=== PATIENT | female | born 1990 | race African-American/Black ===

== ENCOUNTER 2016-07-01 10:32 | Observation (INO) | payer MEDICAID ==
[~2016-07-01] VITALS: Ht 167.6 cm; Wt 92.5 kg
[2016-07-01] MEDS ORDERED: ONDANSETRON HCL 4MG/2ML VIAL IV ONE (11:00)
[2016-07-01] MEDS ORDERED: LACTATED RINGERS 1,000 ML IV SCH (11:00)
[2016-07-01 11:32] LABS: CHLORIDE 106 mEq/L (98-107); INDEX HEMOLYSI 1 (1-3); INDEX ICTERIC 1 (1-4); INDEX LIPEMIC 1 (1-3)
[2016-07-01 11:41] LABS: ALANINE AMINOTRANSFERASE 19 IU/L (13-61); ALBUMIN 3.1 g/dL (3.4-5.0); ANION GAP 15; CALCIUM 8.9 mg/dL (8.5-10.1); CARBON DIOXIDE 23 mEq/L (21-32); UREA NITROGEN BLOOD 6 mg/dL (7-21); eGFR > 60 mL/min (>60)
[2016-07-01 12:24] LABS: CLARITY URINE CLEAR (CLEAR); COLOR URINE DARK YELLOW (YELLOW); GLUCOSE URINE NEGATIVE (NEGATIVE); KETONES URINE 4+ (NEGATIVE); LEUKOCYTE ESTERASE URINE 1+ (NEGATIVE); NITRITE URINE NEGATIVE (NEGATIVE); OCCULT BLOOD URINE NEGATIVE (NEGATIVE); PROTEIN URINE 1+ (NEGATIVE); SPECIFIC GRAVITY URINE 1.021 (1.005-1.030)
[2016-07-01 12:50] LABS: SQUAMOUS EPITHELIAL CELL URINE 2+ /lpf (RARE/1+)
[2016-07-01 12:52] LABS: BACTERIA URINE TRACE; RBC URINE 0-2 /hpf (0-2); WBC URINE 0-2 /hpf (0-2)
[2016-07-01] MEDS ORDERED: PREN-88 PO (13:10)
[2016-07-01] MEDS ORDERED: CITRIC ACID/SODIUM CITRATE SOLN 30ML UDC PO ONE (13:15)
== END 2016-07-01 13:30 | disposition home or self-care (01) ==
LOC: L&D 10:32
PROVIDERS: ADMIT Obstetrics & Gynecology; ATTEND Obstetrics & Gynecology
DX: O26.892 Other specified pregnancy related conditions, second trimester (principal); R10.9 Unspecified abdominal pain; Z3A.00 Weeks of gestation of pregnancy not specified
CPT/HCPCS: 36415; 80053; 81001; 96361; 96374; 99281; G0378; J2405; J7120; 96360; 96365

== ENCOUNTER 2016-08-30 12:04 | Observation (INO) | payer MEDICAID ==
[~2016-08-30] VITALS: Ht 167.6 cm; Wt 92.5 kg
[~2016-08-30 12:04] MED LIST: PREN-88 PO
[2016-08-30] MEDS ORDERED: SODIUM CHLORIDE 0.9% 100 ML IV NR (13:00)
[2016-08-30] MEDS ORDERED: ONDANSETRON HCL 4MG/2ML VIAL IM NR (13:00)
[2016-08-30 13:38] LABS: BASOPHILS % 0.1 % (0.0-2.0); EOSINOPHILS % 0.1 % (0.0-5.0); HEMATOCRIT. 33.4 % (36.0-48.0); HEMOGLOBIN. 11.2 g/dL (12.0-16.0); LYMPHOCYTES % 13.1 % (20.0-50.0); MEAN CORPUSCULAR HEMOGLOBIN 29.2 pg (28.0-32.0); MEAN CORPUSCULAR VOLUME 86.8 fL (81.0-99.0); MEAN PLATELET VOLUME 8.9 fl (7.4-10.4); MONOCYTES % 4.4 % (2.0-8.0); NEUTROPHILS % 82.3 % (40.0-76.0); PLATELET 184 x1000/uL (130-400); RED BLOOD CELL COUNT 3.84 mill/uL (4.2-5.4); RED CELL DISTRIBUTION WIDTH 13.4 % (11.6-14.6)
[2016-08-30 13:42] LABS: CLARITY URINE CLEAR (CLEAR); COLOR URINE YELLOW (YELLOW); GLUCOSE URINE NEGATIVE (NEGATIVE); KETONES URINE 3+ (NEGATIVE); LEUKOCYTE ESTERASE URINE TRACE (NEGATIVE); NITRITE URINE NEGATIVE (NEGATIVE); OCCULT BLOOD URINE NEGATIVE (NEGATIVE); PH URINE 8.5 (4.5-8.0); PROTEIN URINE TRACE (NEGATIVE); SPECIFIC GRAVITY URINE 1.017 (1.005-1.030)
[2016-08-30 13:44] LABS: CARBON DIOXIDE 22 mEq/L (21-32); CHLORIDE 109 mEq/L (98-107)
[2016-08-30] MEDS ORDERED: MVI, ADULT NO.1 10 ML in SODIUM CHLORIDE 0.9% 1,000 ML IV NR ×2 (13:45)
[2016-08-30 14:05] LABS: *AMPHETAMINES SCREEN URINE NEGATIVE (NEGATIVE); *BARBITURATES SCREEN URINE NEGATIVE (NEGATIVE); *COCAINE SCREEN URINE NEGATIVE (NEGATIVE); METHADONE URINE SCREEN NEGATIVE (NEGATIVE); OPIATES URINE SCREEN NEGATIVE (NEGATIVE); PHENCYCLIDINE URINE SCREEN NEGATIVE (NEGATIVE)
[2016-08-30 14:22] LABS: *BENZODIAZEPINES SCREEN URINE NEGATIVE (NEGATIVE)
[2016-08-30 14:23] LABS: CANNABINOID URINE SCREEN PRESUMTIVE POSITIVE (NEGATIVE)
[2016-08-30] MEDS ORDERED: DEXT 5%/LACTATED RINGERS 1,000 ML IV NR (16:15)
[2016-08-30] MEDS ORDERED: METOCLOPRAMIDE HCL 10MG/2ML VIAL IV NR (16:45)
[2016-08-30] MEDS ORDERED: PYRIDOXINE 100 MG/ML 1ML IM NR (18:00)
[2016-09-04 08:15] LABS: CANNABINOID CONFIRMATION URINE Positive (.)
== END 2016-08-30 19:20 | disposition home or self-care (01) ==
LOC: L&D 12:04
PROVIDERS: ADMIT Specialist; ATTEND Specialist
DX: O21.2 Late vomiting of pregnancy (principal); O26.893 Other specified pregnancy related conditions, third trimester; R10.13 Epigastric pain; Z3A.31 31 weeks gestation of pregnancy
CPT/HCPCS: 36415; 80053; 80305; 80349; 81001; 85025; 96365; 96366; 96372; 96375; 99281; G0378; J2405; J2765; J3415; J3490; J7030; 96360; 96361

== ENCOUNTER 2017-09-21 15:30 | Emergency (ER) | payer MEDICAID ==
[~2017-09-21] VITALS: Ht 167.6 cm; Wt 100.0 kg
[2017-09-21] MEDS ORDERED: SODIUM CHLORIDE 0.9% 1,000 ML IV ONE (15:43)
[2017-09-21] MEDS ORDERED: MORPHINE SULFATE 4 MG/ML CPJ (NOT FOR IM USE) IV STA (15:43)
[2017-09-21] MEDS ORDERED: ONDANSETRON HCL 4MG/2ML VIAL IV STA (15:43)
[2017-09-21 16:41] LABS: BASOPHILS % 0.8 % (0.0-2.0); HEMATOCRIT. 40.6 % (36.0-48.0); HEMOGLOBIN. 13.6 g/dL (12.0-16.0); LYMPHOCYTES % 12.5 % (20.0-50.0); MEAN CORPUSCULAR HEMOGLOBIN 29.2 pg (28.0-32.0); MEAN CORPUSCULAR VOLUME 87.1 fL (81.0-99.0); MEAN PLATELET VOLUME 8.9 fl (7.4-10.4); MONOCYTES % 3.3 % (2.0-8.0); NEUTROPHILS % 83.4 % (40.0-76.0); PLATELET 228 x1000/uL (130-400); RED BLOOD CELL COUNT 4.66 mill/uL (4.2-5.4); RED CELL DISTRIBUTION WIDTH 13.2 % (11.6-14.6)
[2017-09-21 16:44] LABS: CHLORIDE 105 mEq/L (98-107)
[2017-09-21 16:47] LABS: PARTIAL THROMBOPLASTIN TIME 26.9 sec (23.4-31.0); PROTHROMBIN TIME 10.8 sec (9.4-11.6)
[2017-09-21 16:55] LABS: HCG SCREEN NEGATIVE
[2017-09-21] MEDS ORDERED: ONDANSETRON HCL 4MG/2ML VIAL IV ONE (19:30)
[2017-09-21] MEDS ORDERED: HYDRALAZINE 20MG/ML VIAL IV ONE (19:45)
[2017-09-21 20:37] LABS: CLARITY URINE CLEAR (CLEAR); COLOR URINE YELLOW (YELLOW); KETONES URINE 2+ (NEGATIVE); LEUKOCYTE ESTERASE URINE NEGATIVE (NEGATIVE); NITRITE URINE NEGATIVE (NEGATIVE); OCCULT BLOOD URINE NEGATIVE (NEGATIVE); PROTEIN URINE NEGATIVE (NEGATIVE); SPECIFIC GRAVITY URINE 1.017 (1.005-1.030); UROBILINOGEN URINE 0.2 E.U./dL (0.2-1.0)
[2017-09-21 21:37] VITALS: BP 124/69
== END 2017-09-21 21:43 | disposition home or self-care (01) ==
LOC: ER 17:25
DX: R10.11 Right upper quadrant pain (principal); R10.13 Epigastric pain; F12.10 Cannabis abuse, uncomplicated; D72.829 Elevated white blood cell count, unspecified
CPT/HCPCS: 36415; 74176; 76700; 80053; 81003; 83690; 84703; 85025; 85610; 85730; 96374; 96375; 96376; 99285; J0360; J2270; J2405; J7030; Z7610